=== PATIENT | male | born 1990 | race Asian ===

== ENCOUNTER 2016-12-15 20:35 | Emergency (ER) | payer OTHER ==
[~2016-12-15] VITALS: Ht 167.6 cm; Wt 83.9 kg
[~2016-12-15 20:35] MED LIST: ASPEC325 PO; OXYSR10 PO; SNK PO
[2016-12-15 20:43] VITALS: TEMP 37.4; Ht 167.6 cm; Wt 83.9 kg
[2016-12-15] MEDS ORDERED: IBUPROFEN 600 MG TAB PO STA (21:13)
[2016-12-15] MEDS ORDERED: PSEUDOEPHEDRINE HCL 30 MG TAB PO STA (21:13)
[2016-12-15] MEDS ORDERED: ALBUTEROL HFA 8 GM INHALER INH ONE (21:15)
--- NOTE | 2016-12-15 21:35 | DIAGNOSTIC IMAGING REPORT ---
CHEST ONE VIEW PORTABLE CLINICAL HISTORY: cough, fever dyspnea COMPARISON STUDY: No previous studies for comparison. FINDINGS: The bones soft tissues and hemidiaphragms are normal. The cardiomediastinal silhouette is normal. The lungs are clear. The pulmonary vasculature is normal. IMPRESSION: Negative chest. The above report was generated using voice recognition software. It may contain grammatical, syntax or spelling errors. Electronically signed by: Mat Leon M.D. 12/15/2016 9:34 PM Dictated Date/Time: 12/15/2016 9:34 PM
[2016-12-15] MEDS ORDERED: PSEU30TA20 PO (21:51)
[2016-12-15] MEDS ORDERED: VNTHFA/IN INH (21:51)
[2016-12-15 21:58] VITALS: BP 140/78; PULSE 89; O2SAT 97
--- NOTE | 2016-12-15 22:18 | EMERGENCY ROOM VISIT NOTE ---
History Report prepared by Obi: Annamaria Monte Under the Supervision of: Dr. Jasbir Conde M.D. First contact with patient: 21:08 Chief Complaint: FLU LIKE SX Stated Complaint: FEVER, HEADACHE, MUSCLE SORENESS History of Present Illness The patient is a 26 year old male who presents to the Emergency Room with complaints of an episode of flu-like symptoms starting three days ago. The patient states that he has had an intermittent sore throat, a constant cough, ear pain, nasal congestion, and a fever. The patient notes that sometimes when he coughs he produces blood but believes that it is from coughing so much. He notes that he has taken DayQuil with little relief. The patient denies vomiting , diarrhea, and being around someone who is sick. Source of History: patient Onset: three days ago Position: other (global) Quality: other (global) Timing: other (episode) Associated Symptoms: + fevers, + sorethroat, + cough, No vomiting, No diarrhea Note: The patient complains of ear pain and nasal congestion. The patient denies being around someone who is sick. Review of Systems See HPI for pertinent positives & negatives. A total of 10 systems reviewed and were otherwise negative. Past Medical & Surgical Medical Problems: (1) No significant medical problems Surgical Problems: (1) No significant past surgical history Family History No pertinent family history Social History Smoking Status: Current Every Day Smoker Alcohol Use: occasionally Marital Status: single Occupation Status: [employer] student Current/Historical Medications Scheduled Albuterol Hfa (Ventolin Hfa), 3 PUFFS INH Q6H Aspirin (Aspirin), 325 MG PO DAILY Oxycodone HCl (Oxycontin), 10 MG PO Q12 Pseudoephedrine (Sudafed), 60 MG PO Q6 Senna (Senna Lax), 2 TAB PO QHS Allergies Coded Allergies: No Known Allergies (Unverified , 07/30/14) Physical Exam Vital Signs Date Time Temp Pulse Resp B/P (MAP) Pulse Ox O2 Delivery O2 Flow Rate FiO2 12/15/16 21:58 89 20 140/78 97 Room Air 12/15/16 20:43 37.4 93 18 131/86 98 Room Air Physical Exam GENERAL: Patient is in no acute distress. HEENT: No acute trauma, normocephalic atraumatic, mucous membranes moist, mild nasal congestion, no scleral icterus. Mild throat erythema without exudate. TMs with fluid. No signs of TM infection. NECK: No stridor, no adenopathy, no meningismus, trachea is midline. LUNGS: Diminished breath sounds but no wheezing or rhonchi. Breath sounds are equal. Dry cough is noted. HEART: Without murmurs gallops or rubs, regular rate and rhythm. ABDOMEN: Soft, nontender, bowel sounds positive, no hernias, no peritonitis. EXTREMITIES: No cyanosis or edema, full range of motion of all the joints without pain or difficulty, no signs for acute trauma. NEUROLOGIC: Oriented x 3, no acute motor or sensory deficits, no focal weakness. SKIN: No rash, no jaundice, no diaphoresis. Medical Decision & Procedures ER Provider Diagnostic Interpretation: Radiology results as stated below per my review and radiologist interpretation: CHEST ONE VIEW PORTABLE CLINICAL HISTORY: cough, fever dyspnea COMPARISON STUDY: No previous studies for comparison. FINDINGS: The bones soft tissues and hemidiaphragms are normal. The cardiomediastinal silhouette is normal. The lungs are clear. The pulmonary vasculature is normal. IMPRESSION: Negative chest. The above report was generated using voice recognition software. It may contain grammatical, syntax or spelling errors. Electronically signed by: Mat Leon M.D. 12/15/2016 9:34 PM Dictated Date/Time: 12/15/2016 9:34 PM Medications Administered Medications (Trade) Dose Ordered Sig/Erick Route Start Time Stop Time Status Last Admin Dose Admin Albuterol (Ventolin Hfa Inhaler) 3 puffs NOW ONCE INH 12/15/16 21:15 12/15/16 21:16 DC 12/15/16 21:33 3 PUFFS Pseudoephedrine HCl (Sudafed Tab) 60 mg NOW STAT PO 12/15/16 21:13 12/15/16 21:15 DC 12/15/16 21:33 60 MG Ibuprofen (Motrin Tab) 600 mg NOW STAT PO 12/15/16 21:13 12/15/16 21:15 DC 12/15/16 21:34 600 MG ED Course 2109: The patient was evaluated in room A9B. A complete history and physical exam was performed. 2112: Ordered Motrin Tab 600 mg PO, Sudafed Tab 60 mg PO. 2114: Ordered Albuterol 3 puffs INH. 2156: Reevaluated the patient. Discussed results and discharge instructions: he verbalized understanding and agreement. The patient is ready for discharge. Medical Decision Differential diagnoses include flu-like illness, bronchitis, pneumonia, otitis media, pharyngitis. The patient presents with flulike symptoms. He has had coughing and congestion. His lungs were somewhat diminished but there were no wheezes or rhonchi. No tonsillitis or otitis media by exam. He was not febrile or toxic or hypoxic. Chest film was done, there was no pneumonia, cardiomegaly or mediastinal widening. The patient was given oral Sudafed, oral Motrin and albuterol via [facility], he is doing well. He will be discharged on all the above. If worsening, he can return. His illness appears viral. Impression Primary Impression: Acute bronchitis Additional Impression: Cough Scribe Attestation The scribe's documentation has been prepared under my direction and personally reviewed by me in its entirety. I confirm that the note above accurately reflects all work, treatment, procedures, and medical decision making performed by me. Departure Information Dispostion Home / Self-Care Prescriptions Albuterol Hfa (VENTOLIN HFA) 200 Puffs/94810 Mcg Aers 3 PUFFS INH Q6H, #1 INHALER Prov: Jasbir Conde M.D. 12/15/16 Pseudoephedrine (Sudafed) 30 Mg Tab 60 MG PO Q6 for 5 Days, #40 TAB Prov: Jasbir Conde M.D. 12/15/16 Referrals No Doctor, Assigned (PCP) Forms HOME CARE DOCUMENTATION FORM, IMPORTANT VISIT INFORMATION Patient Instructions My [facility] Additional Instructions rest fluids tylenol or motrin for fever and aches sudafed for congestion---2 tab every 6 hours as needed albuterol 3 puffs every 6 hours return if worsening chest film today was ok Problem Qualifiers
== END 2016-12-15 22:08 | disposition home or self-care (01) ==
LOC: C.EDB 20:37 → C.EDA 22:08
DX: J20.9 Acute bronchitis, unspecified (principal); R05 Cough; F17.200 Nicotine dependence, unspecified, uncomplicated; Z79.82 Long term (current) use of aspirin